=== PATIENT | male | born 1930 | race Caucasian/White ===

== ENCOUNTER 2017-04-21 13:05 | Emergency (ER) | payer OTHER ==
[~2017-04-21] VITALS: Ht 167.6 cm; Wt 68.5 kg
[~2017-04-21 13:05] MED LIST: CALC625T31; CRAN1CAP2 PO; LOSA25TA96 PO; MULT1TAB PO; NIA500ERT PO; QUET25TA PO
[2017-04-21 14:13] VITALS: BP 160/82
== END 2017-04-21 14:17 | disposition home or self-care (01) ==
LOC: ER 13:07
DX: D17.22 Benign lipomatous neoplasm of skin and subcutaneous tissue of left arm (principal); R20.2 Paresthesia of skin; Z86.73 Personal history of transient ischemic attack (TIA), and cerebral infarction without residual deficits; Z85.038 Personal history of other malignant neoplasm of large intestine; Z98.890 Other specified postprocedural states; Z79.899 Other long term (current) drug therapy
CPT/HCPCS: 99281

== ENCOUNTER 2018-02-04 11:38 | Emergency (ER) | payer OTHER ==
[~2018-02-04] VITALS: Ht 170.2 cm; Wt 64.3 kg
[~2018-02-04 11:38] MED LIST changes: +CEPH500C5 PO
[2018-02-04] MEDS ORDERED: NEOM10DR45 RIGHT EAR (13:13)
[2018-02-04] MEDS ORDERED: AMOX500C2 PO (13:14)
[2018-02-04] MEDS ORDERED: acetaminophen 325mg tablet PO ONE (13:20)
[2018-02-04 13:29] VITALS: BP 157/92
== END 2018-02-04 16:40 | disposition home or self-care (01) ==
LOC: ER 11:38
DX: H60.91 Unspecified otitis externa, right ear (principal); Z79.899 Other long term (current) drug therapy; Z86.73 Personal history of transient ischemic attack (TIA), and cerebral infarction without residual deficits; Z86.718 Personal history of other venous thrombosis and embolism; Z85.038 Personal history of other malignant neoplasm of large intestine
CPT/HCPCS: 99283

== ENCOUNTER 2018-03-15 14:41 | Emergency (ER) | payer OTHER ==
[~2018-03-15] VITALS: Ht 172.7 cm; Wt 52.0 kg
[~2018-03-15 14:41] MED LIST changes: +NEOM10DR45 RIGHT EAR
[2018-03-15 14:50] VITALS: BP 137/60
[2018-03-15] MEDS ORDERED: TRAM50TA2 PO (15:23)
== END 2018-03-15 15:58 | disposition home or self-care (01) ==
LOC: ER 14:45
DX: S40.011A Contusion of right shoulder, initial encounter (principal); Z86.73 Personal history of transient ischemic attack (TIA), and cerebral infarction without residual deficits; Z85.038 Personal history of other malignant neoplasm of large intestine; Z98.890 Other specified postprocedural states; Z79.899 Other long term (current) drug therapy; X58.XXXA Exposure to other specified factors, initial encounter; Y93.89 Activity, other specified; Y92.89 Other specified places as the place of occurrence of the external cause; Y99.8 Other external cause status
CPT/HCPCS: 73030; 99283

== ENCOUNTER 2018-05-31 12:49 | Emergency (ER) | payer OTHER ==
[~2018-05-31] VITALS: Ht 172.7 cm; Wt 57.4 kg
[2018-05-31 13:32] VITALS: BP 130/55
--- NOTE | 2018-06-01 12:39 | NUR ---
Spoke with patient. He has contacted his primary provider and will f/u with PMD.
== END 2018-05-31 13:00 | disposition left against medical advice (07) ==
LOC: ER 12:49
DX: R10.9 Unspecified abdominal pain (principal); Z53.21 Procedure and treatment not carried out due to patient leaving prior to being seen by health care provider

== ENCOUNTER 2018-07-25 06:02 | Emergency (ER) | payer OTHER ==
[~2018-07-25] VITALS: Ht 172.7 cm; Wt 57.9 kg
[2018-07-25 07:19] LABS: CLARITY,URINE CLOUDY (Clear); COLOR,URINE YELLOW (Yellow); GLUCOSE, URINE NEGATIVE (Neg); KETONES,URINE NEGATIVE (Neg); LEUKOCYTE ESTERASE ,URINE LARGE (Neg); NITRITES, URINE POSITIVE (Neg); OCCULT BLOOD,URINE MODERATE (Neg); PROTEIN,URINE TRACE mg/dl (Neg); UROBILINOGEN,URINE 0.2 E.U/dL (0.2-1.0)
[2018-07-25 07:24] LABS: UA COLLECTION TYPE OTHER
[2018-07-25 07:26] LABS: BACTERIA,URINE 2+ /HPF (Neg); SQUAMOUS EPITHELIAL CELL,UR NONE SEEN /LPF (FEW); WBC CLUMPS,URINE MANY /HPF (NEGATIVE); WBC,URINE TNTC /HPF (0-4)
[2018-07-25] MEDS ORDERED: ciprofloxacin 250mg tablet PO ONE (07:50)
[2018-07-25] MEDS ORDERED: CIPR-259 PO (07:54)
[2018-07-25 08:22] VITALS: BP 156/78
== END 2018-07-25 08:24 | disposition home or self-care (01) ==
LOC: ER 06:03
DX: N39.0 Urinary tract infection, site not specified (principal); N13.30 Unspecified hydronephrosis; Z79.2 Long term (current) use of antibiotics; Z79.899 Other long term (current) drug therapy; Z86.73 Personal history of transient ischemic attack (TIA), and cerebral infarction without residual deficits; Z85.51 Personal history of malignant neoplasm of bladder; Z85.038 Personal history of other malignant neoplasm of large intestine; Z98.890 Other specified postprocedural states; Z87.891 Personal history of nicotine dependence
CPT/HCPCS: 81001; 87077; 87088; 87186; 99284

== ENCOUNTER 2018-09-03 17:32 | Emergency (ER) | payer OTHER ==
[~2018-09-03] VITALS: Ht 172.7 cm; Wt 65.0 kg
[~2018-09-03 17:32] MED LIST changes: +CIPR-259 PO
[2018-09-03] MEDS ORDERED: TETanus/Pertussis (Acell)/Diphther VAC/PF (Tdap-Adult) 0.5ml syringe IMVAC ONE (19:10)
[2018-09-03] MEDS ORDERED: LIDOcaine 1% w/epiNEPHrine 1:200,000 30ml vial IM ONE (20:05)
[2018-09-03 20:51] VITALS: BP 153/76
== END 2018-09-03 20:55 | disposition home or self-care (01) ==
LOC: ER 17:33
DX: S51.811A Laceration without foreign body of right forearm, initial encounter (principal); Z86.73 Personal history of transient ischemic attack (TIA), and cerebral infarction without residual deficits; Z79.899 Other long term (current) drug therapy; W45.8XXA Other foreign body or object entering through skin, initial encounter; Y93.89 Activity, other specified; Y92.89 Other specified places as the place of occurrence of the external cause; Y99.8 Other external cause status
CPT/HCPCS: 12002; 90471; 90715; 99283; J3490

== ENCOUNTER 2018-09-13 15:37 | Emergency (ER) | payer OTHER ==
[~2018-09-13] VITALS: Ht 172.7 cm; Wt 63.6 kg
[2018-09-13 15:59] VITALS: BP 146/55
== END 2018-09-13 16:42 | disposition home or self-care (01) ==
LOC: ER 15:38
DX: S51.811D Laceration without foreign body of right forearm, subsequent encounter (principal); Z48.02 Encounter for removal of sutures; Z86.73 Personal history of transient ischemic attack (TIA), and cerebral infarction without residual deficits; Z79.899 Other long term (current) drug therapy; W45.8XXD Other foreign body or object entering through skin, subsequent encounter
CPT/HCPCS: 99281

== ENCOUNTER 2018-09-17 10:46 | Emergency (ER) | payer OTHER ==
[~2018-09-17] VITALS: Ht 172.7 cm; Wt 63.6 kg
[2018-09-17 11:17] VITALS: BP 161/74
== END 2018-09-17 14:14 | disposition home or self-care (01) ==
LOC: ER 10:46
DX: S51.811D Laceration without foreign body of right forearm, subsequent encounter (principal); Z48.02 Encounter for removal of sutures; Z79.2 Long term (current) use of antibiotics; Z79.899 Other long term (current) drug therapy; Z86.73 Personal history of transient ischemic attack (TIA), and cerebral infarction without residual deficits; Z98.890 Other specified postprocedural states; W45.8XXD Other foreign body or object entering through skin, subsequent encounter
CPT/HCPCS: 99284